=== PATIENT | female | born 1995 | race African-American/Black ===

== ENCOUNTER 2020-09-14 14:54 | Emergency (ER) | payer OTHER ==
[~2020-09-14] VITALS: Ht 157.5 cm; Wt 60.0 kg
[2020-09-14] MEDS ORDERED: HEMO0.1O PR (16:00)
[2020-09-14 16:05] VITALS: BP 145/88
== END 2020-09-14 16:07 | disposition home or self-care (01) ==
LOC: M ED 14:54
DX: K64.4 Residual hemorrhoidal skin tags (principal); Z79.3 Long term (current) use of hormonal contraceptives

== ENCOUNTER → 2020-11-09 | Outpatient (REF) ==
[~2020-11-09] MED LIST: HEMO0.1O PR
== END ==
LOC: M LABSMTC 10:45
PROVIDERS: ATTEND Pediatrics
DX: Z20.822 Contact with and (suspected) exposure to COVID-19 (principal)

== ENCOUNTER 2022-10-31 09:16 | Emergency (ER) | payer OTHER ==
[~2022-10-31] VITALS: Ht 157.5 cm; Wt 60.6 kg
[2022-10-31] MEDS ORDERED: ACET-683 PO (09:33)
[2022-10-31] MEDS ORDERED: LORazepam 2 MG/ML 1ML VIAL IV STA (09:44)
[2022-10-31] MEDS ORDERED: NS 1,000 ML IV ONE (09:45)
[2022-10-31 09:47] LABS: BASO # 0.1 10^3/uL (0.0-0.2); BASO % 0.6 % (0.0-1.0); EOS # 0.1 10^3/uL (0.0-0.5); HEMATOCRIT 43.7 % (36.0-47.0); HEMOGLOBIN 15.2 g/dl (12.0-15.5); LYMPH # 4.9 10^3/uL (1.5-5.0); LYMPH % 54.4 % (24.0-44.0); MEAN CORPUSCULAR HEMOGLOBIN 29.2 pg (27.0-33.0); MEAN CORPUSCULAR HGB CONC 34.8 g/dl (32.0-36.5); MEAN CORPUSCULAR VOLUME 83.9 fl (80.0-96.0); MONO # 0.7 10^3/uL (0.0-0.8); MONO % 8.3 % (2.0-8.0); NEUTROPHILS # 3.2 10^3/uL (1.5-8.5); NEUTROPHILS % 35.5 % (36.0-66.0); PLATELET COUNT, AUTOMATED 292 10^3/uL (150-450); RED BLOOD COUNT 5.21 10^6/uL (4.00-5.40); WHITE BLOOD COUNT 8.9 10^3/uL (4.0-10.0)
[2022-10-31 10:00] LABS: INR 0.98; PROTHROMBIN TIME 13.2 SECONDS (12.5-14.5)
[2022-10-31 10:01] LABS: PARTIAL THROMBOPLASTIN TIME 24.5 SECONDS (24.8-34.2)
[2022-10-31 10:16] LABS: CK-MB VALUE MASS < 1.0 NG/ML (<3.6)
[2022-10-31 10:17] LABS: HCG, SERUM QUALITATIVE NEGATIVE (NEGATIVE); LIPASE 44 U/L (12-53)
[2022-10-31 10:19] LABS: ALBUMIN 4.5 G/DL (3.2-5.2); ALKALINE PHOSPHATASE 74 U/L (46-116); ALT/SGPT 25 U/L (7.0-40); AST/SGOT 18 U/L (<34); BILIRUBIN,DIRECT 0.2 MG/DL (<0.4); BILIRUBIN,TOTAL 0.6 MG/DL (0.3-1.2); CPK CREATINE PHOSPHOKINASE 57 U/L (34-145); MB/CK RELATIVE INDEX 1.75 (< OR =4); TOTAL PROTEIN 7.8 G/DL (5.7-8.2)
[2022-10-31 10:20] LABS: THYROID STIMULATING HORMONE 0.825 uIU/ML (0.55-4.78)
[2022-10-31 10:21] LABS: FREE T4 1.14 NG/DL (0.89-1.76)
[2022-10-31] MEDS ORDERED: KETOROLAC 30 MG/ML 1ML VIAL IV ONE (10:50)
[2022-10-31 11:15] LABS: ETHYL ALCOHOL (ETHANOL) < 0.003 % (0.000-0.010)
[2022-10-31 11:17] LABS: ACETAMINOPHEN LEVEL < 2.0 UG/ML (10.0-20.0); BLOOD UREA NITROGEN 11 MG/DL (9-23); CALCIUM LEVEL 9.9 MG/DL (8.5-10.1); CARBON DIOXIDE LEVEL 22 MMOL/L (20-31); CHLORIDE LEVEL 103 MMOL/L (98-107); CREATININE FOR GFR 0.48 MG/DL (0.55-1.30); GLOMERULAR FILTRATION RATE > 60.0 (>60); GLUCOSE, FASTING 135 MG/DL (60-100); POTASSIUM SERUM 3.2 MMOL/L (3.5-5.1); SALICYLATE LEVEL < 3.0 MG/DL (<30); SODIUM LEVEL 137 MMOL/L (136-145)
[2022-10-31 11:19] LABS: CK-MB VALUE MASS < 1.0 NG/ML (<3.6)
[2022-10-31 11:26] LABS: CPK CREATINE PHOSPHOKINASE 52 U/L (34-145); MB/CK RELATIVE INDEX 1.92 (< OR =4)
[2022-10-31] MEDS ORDERED: POTASSIUM CHLORIDE 10MEQ SR TABLET PO ONE (11:45)
[2022-10-31 13:25] LABS: CK-MB VALUE MASS < 1.0 NG/ML (<3.6)
[2022-10-31 13:26] LABS: CPK CREATINE PHOSPHOKINASE 52 U/L (34-145); MB/CK RELATIVE INDEX 1.92 (< OR =4)
[2022-10-31] MEDS ORDERED: POTA-151 PO (14:32)
[2022-10-31 15:00] VITALS: BP 123/76
== END 2022-10-31 15:19 | disposition home or self-care (01) ==
LOC: M ED 09:16
DX: R07.9 Chest pain, unspecified (principal); R00.2 Palpitations; E87.6 Hypokalemia; R00.0 Tachycardia, unspecified; G43.909 Migraine, unspecified, not intractable, without status migrainosus; Z79.810 Long term (current) use of selective estrogen receptor modulators (SERMs); Z79.1 Long term (current) use of non-steroidal anti-inflammatories (NSAID)
CPT/HCPCS: 71045; 80047; 80048; 80076; 80143; 82077; 82550; 82553; 83690; 84439; 84443; 84484; 84702; 84703; 85025; 85610; 85730; 93005; 93041; 94760; 96361; 96374; 96375; 99285; J1885; J2060